=== PATIENT | female | born 1965 | race Caucasian/White ===

== ENCOUNTER → 2018-01-19 | Outpatient (CLI) | payer OTHER ==
--- NOTE | 2018-01-19 15:33 | Diagnostic Imaging Report ---
EXAM: DXA BONE DENSITY INDICATIONS: OSTEOPORSIS SCREENING COMPARISON: None. FINDINGS: Proximal left femur neck bone mineral density (BMD) (g/cm2):0.839 Femur T-score (standard deviation relative to young adult mean BMD): -0.1 Femur Z-score (standard deviation relative to age-matched control group):0.8 Lumbar bone mineral density (BMD) (g/cm2):0.896 Lumbar T-score (standard deviation relative to young adult mean BMD): -1.4 Lumbar Z-score (standard deviation relative to age-matched control group):-0.4 Change since prior exam (%): Femur:Not applicable. Spine:Not applicable. Change since oldest prior exam (%): Femur:Not applicable. Spine:Not applicable. CONCLUSION: 1. Bone mineral density in the left femur is classified as normal. Fracture risk is low. 2. Bone mineral density in the spine is classified as osteopenia. Fracture risk is medium. World Health Organization Classification: *The Z-score is provided for informational purposes. The T-score is preferable for clinical decisions. When comparing exams, a change of >4% is considered statistically significant. SUGGESTED RECOMMENDATIONS: Normal \T\ Osteopenia:Consideration should be given to use of calcium supplementation, daily multiple vitamins and adequate exercise, as preventive measures against osteoporosis, if clinically indicated. Osteoporosis \T\ Severe Osteoporosis:In addition to the above, consideration should be given to medical therapy against osteoporosis, if clinically indicated. Dictated by: Brent Singh M.D. on 01/19/2018 at 15:37 Electronically approved by: Brent Singh M.D. on 01/19/2018 at 15:37
== END ==
LOC: MAMMO 14:07
PROVIDERS: ATTEND Obstetrics & Gynecology
DX: Z12.31 Encounter for screening mammogram for malignant neoplasm of breast (principal); Z13.820 Encounter for screening for osteoporosis
CPT/HCPCS: 77067; 77080

== ENCOUNTER → 2019-03-03 | Outpatient (CLI) | payer SELFPAY ==
--- NOTE | 2019-03-07 09:29 | Diagnostic Imaging Report ---
#[id number] - [id number] #BILATERAL DIGITAL SCREENING MAMMOGRAM WITH CAD: 03/03/2019 CLINICAL: Routine screening. Comparison is made to exams dated: 01/19/2018 mammogram - [facility] and 01/20/2017 mammogram - [facility]. Current study contains 4 films. There are scattered fibroglandular elements in both breasts. Current study was also evaluated with a Computer Aided Detection (CAD) system. No significant masses, calcifications, or other findings are seen in either breast. IMPRESSION: NEGATIVE There is no mammographic evidence of malignancy. A 1 year screening mammogram is recommended. The patient will be notified by letter of the results. ALICIA CAMPBELL M.D. ct/penrad:03/03/2019 18:00:12 Contestant Coordinator: Tara CUI(R)(M), [facility] letter sent: Normal Exam Mammogram BI-RADS: 1 Negative
== END ==
LOC: MAMMO 10:07
PROVIDERS: ATTEND Obstetrics & Gynecology
DX: Z12.31 Encounter for screening mammogram for malignant neoplasm of breast (principal)
CPT/HCPCS: 77067

== ENCOUNTER → 2020-04-05 | Outpatient (CLI) | payer SELFPAY | LOC: MAMMO 09:33 | PROVIDERS: ATTEND Obstetrics & Gynecology | DX: Z12.31 Encounter for screening mammogram for malignant neoplasm of breast (principal) | CPT/HCPCS: 77067 ==

== ENCOUNTER → 2021-11-14 | Outpatient (CLI) | payer SELFPAY | LOC: MAMMO 09:39 | PROVIDERS: ATTEND Internal Medicine | DX: Z12.31 Encounter for screening mammogram for malignant neoplasm of breast (principal) | CPT/HCPCS: 77067 ==